=== PATIENT | female | born 1945 | race Caucasian/White ===

== ENCOUNTER 2017-04-15 23:11 | Emergency (ER) | payer MEDICARE, MEDICAID ==
[~2017-04-15] VITALS: Ht 154.9 cm; Wt 59.0 kg
[~2017-04-15 23:11] MED LIST: ALBU0.086 NEB; ALBU1AER INH; ASPI81TA82 PO; DOXY100T PO; LOSA50TA PO; MELO15TA2 PO; PROM25SU8 PO; SIMV10 PO; ZOFR4TAB3 SL; inhaler
[2017-04-15 23:46] VITALS: BP 103/51; PULSE 67; RESP 20; TEMP 98.5; O2SAT 100
--- NOTE | 2017-04-16 02:19 | PD ---
HPI Chief Complaint: Fall Time Seen by Provider: 02:10 Travel History International Travel<30 days: No Contact w/Intl Traveler<30days: No Traveled to known affect area: No History of Present Illness HPI 71-year-old female complains of left hip pain. Patient states that she fell 2 days ago. Patient states the pain is sharp pain localized to left hip. Patient denies any pain radiation. Patient states that the pain is worse with weightbearing. Patient complains of dysuria also. Patient denies any headache. Patient denies any neck pain. Patient denies any chest pain or shortness of breath. Patient denies abdominal pain. Patient denies any focal weakness or numbness of extremity. Patient has history of COPD, hypertension, MS, CVA, anxiety. PFSH Past Medical History Arthritis: Yes Blood Disorders: No Anxiety: Yes Cancer: No Cardiovascular Problems: Yes Chemotherapy: No COPD: Yes Cerebrovascular Accident: Yes Diminished Hearing: Yes Endocrine: No Genitourinary: Yes Herniated Disk: Yes Hypertension: Yes Immune Disorder: No Kidney Stones: Yes Musculoskeletal: Yes (SURGERY FOR BEING [employer] FO[employer]) Neurologic: Yes Respiratory: No Myocardial Infarction: Yes Radiation Therapy: No Tetanus Vaccination: Unknown Influenza Vaccination: No : 1 Para: 1 Tubal Ligation: Yes Past Surgical History Abdominal Surgery: No Cardiac Surgery: No Ear Surgery: No Endocrine Surgery: No Eye Surgery: No Genitourinary Surgery: No Gynecologic Surgery: Yes Oral Surgery: No Pacemaker: No Thoracic Surgery: No Other Surgery: Yes Social History Alcohol Use: No Tobacco Use: Yes (4 CIG/DAY) Substance Use: No Allergies-Medications (Allergen,Severity, Reaction): Coded Allergies: acetaminophen (Unverified Allergy, Severe, Hallucinations, 04/16/17) propoxyphene (Unverified Allergy, Severe, Hallucinations, 04/16/17) shellfish derived (Unverified Allergy, Severe, 04/16/17) sulfamethoxazole (Unverified Allergy, Severe, Hives, 04/16/17) trimethoprim (Unverified Allergy, Severe, Hives, 04/16/17) Reported Meds & Prescriptions Reported Meds & Active Scripts Active Doxycycline Hyclate 100 mg (Doxycycline Hyclate) 100 Mg Tab 100 Mg PO BID Phenergan (Promethazine HCl) 25 Mg Tab 25 Mg PO Q6H PRN FOR NAUSEA/VOMITING Zofran ODT (Ondansetron HCl) 4 Mg Tab 4 Mg SL QID PRN FOR NAUSEA/VOMITING Reported Proventil Ud 0.083% (2.5 Mg/3 Ml) (Albuterol Sulfate) 2.5 Mg/3 Ml Inha 2.5 Mg NEB Q8HR NEB [inhaler] Proair Hfa (Albuterol Sulfate) 8.5 Gm Aero 1 Puff INH ONCE * SHAKE WELL BEFORE USE * Mobic (Meloxicam) 15 Mg Tab 15 Mg PO DAILY Losartan Potassium 50 MG (Losartan Potassium) 50 Mg Tab 50 Mg PO DAILY Simvastatin 10 mg (Simvastatin) 10 Mg Tab 1 Tab PO HS Aspir-81 (Aspirin) 81 Mg Tab 81 Mg PO DAILY Review of Systems General / Constitutional: No: Fever Eyes: No: Visual changes HENT: No: Headaches Cardiovascular: No: Chest Pain or Discomfort Respiratory: No: Shortness of Breath Gastrointestinal: No: Abdominal Pain Genitourinary: No: Dysuria Musculoskeletal: Positive: Pain Skin: No Rash Neurologic: No: Weakness Psychiatric: No: Depression Endocrine: No: Polydipsia Hematologic/Lymphatic: No: Easy Bruising Physical Exam Narrative GENERAL: Well-nourished, well-developed patient. SKIN: Focused skin assessment warm/dry. HEAD: Normocephalic. EYES: No scleral icterus. No injection or drainage. NECK: Supple, trachea midline. No JVD or lymphadenopathy. CARDIOVASCULAR: Regular rate and rhythm without murmurs, gallops, or rubs. RESPIRATORY: Breath sounds equal bilaterally. No accessory muscle use. GASTROINTESTINAL: Abdomen soft, non-tender, nondistended. MUSCULOSKELETAL: No cyanosis, or edema. Patient had moderate tenderness and palpation lateral aspect of the left hip joint. Limited range of motion the left hip secondary to pain. Sensory motor portion distally intact. BACK: Nontender without obvious deformity. No CVA tenderness. Neurologic exam: Patient's awake and alert oriented to place and person. Patient moves all extremities well except the left leg. No obvious focal neurological deficit. Data Data Last Documented VS Vital Signs Date Time Temp Pulse Resp B/P (MAP) Pulse Ox O2 Delivery O2 Flow Rate FiO2 04/16/17 02:40 19 98 Nasal Cannula 2.00 04/15/17 23:46 98.5 67 103/51 (68) Orders Orders Electrocardiogram (04/16/17 02:14) Complete Blood Count With Diff (1/11/18 02:14) Comprehensive Metabolic Panel (04/16/17 02:14) Prothrombin Time / Inr (Pt) (04/16/17 02:14) Act Partial Throm Time (Ptt) (04/16/17 02:14) Urinalysis - C+S If Indicated (04/16/17 02:14) Chest, Single Ap (04/16/17 02:14) Iv Access Insert/Monitor (04/16/17 02:14) Ecg Monitoring (04/16/17 02:14) Oximetry (04/16/17 02:14) Hip, Uni(Ap&Lat) W Ap Pelvis (04/16/17 02:14) Urine Culture (04/16/17 02:30) Ed Discharge Order (04/16/17 04:05) Labs Laboratory Tests Test 04/16/17 02:25 04/16/17 02:30 White Blood Count 13.2 TH/MM3 Red Blood Count 3.61 MIL/MM3 Hemoglobin 11.0 GM/DL Hematocrit 32.5 % Mean Corpuscular Volume 90.0 FL Mean Corpuscular Hemoglobin 30.4 PG Mean Corpuscular Hemoglobin Concent 33.8 % Red Cell Distribution Width 14.3 % Platelet Count 400 TH/MM3 Mean Platelet Volume 6.2 FL Neutrophils (%) (Auto) 61.0 % Lymphocytes (%) (Auto) 24.0 % Monocytes (%) (Auto) 11.3 % Eosinophils (%) (Auto) 2.8 % Basophils (%) (Auto) 0.9 % Neutrophils # (Auto) 8.1 TH/MM3 Lymphocytes # (Auto) 3.2 TH/MM3 Monocytes # (Auto) 1.5 TH/MM3 Eosinophils # (Auto) 0.4 TH/MM3 Basophils # (Auto) 0.1 TH/MM3 CBC Comment DIFF FINAL Differential Comment Prothrombin Time 10.9 SEC Prothromb Time International Ratio 1.1 RATIO Activated Partial Thromboplast Time 27.1 SEC Blood Urea Nitrogen 14 MG/DL Creatinine 0.98 MG/DL Random Glucose 104 MG/DL Total Protein 7.3 GM/DL Albumin 2.5 GM/DL Calcium Level 8.3 MG/DL Alkaline Phosphatase 100 U/L Aspartate Amino Transf (AST/SGOT) 25 U/L Alanine Aminotransferase (ALT/SGPT) 23 U/L Total Bilirubin 0.2 MG/DL Sodium Level 140 MEQ/L Potassium Level 4.0 MEQ/L Chloride Level 106 MEQ/L Carbon Dioxide Level 25.8 MEQ/L Anion Gap 8 MEQ/L Estimat Glomerular Filtration Rate 56 ML/MIN Urine Color YELLOW Urine Turbidity HAZY Urine pH 6.0 Urine Specific [place] 1.008 Urine Protein TRACE mg/dL Urine Glucose (UA) NEG mg/dL Urine Ketones NEG mg/dL Urine Occult Blood SMALL Urine Nitrite NEG Urine Bilirubin NEG Urine Urobilinogen LESS THAN 2.0 MG/DL Urine Leukocyte Esterase LARGE Urine RBC /hpf Urine WBC 28 /hpf Urine Squamous Epithelial Cells 10 /hpf Urine Amorphous Sediment RARE Urine Bacteria MANY /hpf Microscopic Urinalysis Comment CULTURE INDICATED MDM Medical Decision Making Medical Screen Exam Complete: Yes Emergency Medical Condition: Yes Interpretation(s) Last Impressions Hip and Pelvis X-Ray 04/16/17213 Signed Impressions: Service Date/Time: April 02:49 - CONCLUSION: 1. There is no evidence of acute fracture. Lasha Mccoy MD Chest X-Ray 04/16/17213 Signed Impressions: Service Date/Time: April 02:49 - CONCLUSION: 1. No acute cardiopulmonary disease. Lasha Mccoy MD Differential Diagnosis Differential diagnosis including contusion, fracture, dislocation. Narrative Course 71-year-old female with left hip injury. Diagnosis Primary Impression: Contusion of left hip Qualified Codes: S70.02XA - Contusion of left hip, initial encounter Additional Impression: UTI (urinary tract infection) Qualified Codes: N30.00 - Acute cystitis without hematuria Patient Instructions: General Instructions Additional Instructions: Advil for pain. Follow-up with personal physician or orthopedist if persistent problem. Cipro as directed for UTI. Med/Other Pt SpecificInfo: Prescription(s) given, No Change to Meds Scripts Ciprofloxacin (Cipro) 500 Mg Tab 500 MG PO BID for Infection, #14 TAB 0 Refills Prov: Mak Hernandez MD 04/16/17 Disposition: 01 DISCHARGE HOME Condition: Stable Mak Hernandez MD Apr 16, 2017 02:19
[2017-04-16 02:33] LABS: AUTOMATED NEUTROPHIL # 8.1 TH/MM3 (1.8-7.7); BASOPHIL # 0.1 TH/MM3 (0-0.2); BASOPHIL % 0.9 % (0.0-2.0); EOSINOPHIL # 0.4 TH/MM3 (0-0.4); EOSINOPHIL % 2.8 % (0.0-4.0); HEMATOCRIT 32.5 % (35.0-46.0); LYMPHOCYTE # 3.2 TH/MM3 (1.0-4.8); MEAN CORPUSCULAR HEMOGLOBIN 30.4 PG (27.0-34.0); MEAN CORPUSCULAR HGB CONC 33.8 % (32.0-36.0); MEAN PLATELET VOLUME 6.2 FL (7.0-11.0); MONO % 11.3 % (0.0-8.0); MONOCYTE # 1.5 TH/MM3 (0-0.9); PLATELET COUNT 400 TH/MM3 (150-450); RED BLOOD COUNT 3.61 MIL/MM3 (4.00-5.30); RED CELL DISTRIBUTION WIDTH 14.3 % (11.6-17.2); WHITE BLOOD COUNT 13.2 TH/MM3 (4.0-11.0)
[2017-04-16 02:40] VITALS: RESP 19; O2SAT 98
[2017-04-16 02:42] LABS: INTERNATIONAL NORMALIZED RATIO 1.1 RATIO; PROTHROMBIN TIME - PATIENT 10.9 SEC (9.8-11.6)
[2017-04-16 02:56] LABS: AMORPHOUS SEDIMENT, URINE RARE; BACTERIA, URINE MANY /hpf; BILIRUBIN, URINE NEG (NEG); BLOOD, URINE SMALL (NEG); GLUCOSE,URINE NEG (NEG); KETONE, URINE NEG (NEG); NITRITE,URINE NEG (NEG); SQUAMOUS EPITHELIAL CELL URINE 10 /hpf (0-5); URINE COLOR YELLOW (YELLW/STRAW); URINE LEUKOCYTE ESTERASE LARGE (NEG)
[2017-04-16 02:56] LABS: ALBUMIN 2.5 GM/DL (3.4-5.0); ALT (GPT) 23 U/L (10-53); AST (GOT) 25 U/L (15-37); BICARBONATE 25.8 MEQ/L (21.0-32.0); BLOOD UREA NITROGEN 14 MG/DL (7-18); CALCIUM 8.3 MG/DL (8.5-10.1); CHLORIDE 106 MEQ/L (98-107); CREATININE 0.98 MG/DL (0.50-1.00); GLOMERULAR FILTRATION RATE 56 ML/MIN (>89); GLUCOSE,RANDOM 104 MG/DL (74-106); SODIUM (NA) 140 MEQ/L (136-145)
[2017-04-16 02:59] LABS: ALKALINE PHOSPHATASE 100 U/L (45-117); TOTAL BILIRUBIN ADULT 0.2 MG/DL (0.2-1.0); TOTAL PROTEIN 7.3 GM/DL (6.4-8.2)
--- NOTE | 2017-04-16 03:43 | RADRPT ---
EXAM DATE/TIME: 04/16/2017 02:49 [facility] COMPARISON: CHEST SINGLE AP, October 15, 2014, 22:16. INDICATIONS : Pain and weakness. MEDICAL HISTORY : None. SURGICAL HISTORY : None. ENCOUNTER: Initial ACUITY: 1 day PAIN SCORE: 3/10 LOCATION: Bilateral chest FINDINGS: A single view of the chest demonstrates the lungs to be symmetrically aerated without evidence of mas s, infiltrate or effusion. The cardiomediastinal contours are unremarkable. Osseous structures are intact. CONCLUSION: 1. No acute cardiopulmonary disease. Lasha Mccoy MD on April 16, 2017 at 3:42 Board Certified Radiologist. This report was verified electronically.
--- NOTE | 2017-04-16 03:46 | RADRPT ---
EXAM DATE/TIME: 04/16/2017 02:49 [facility] COMPARISON: No previous studies available for comparison. INDICATIONS : Left hip pain. MEDICAL HISTORY : None. SURGICAL HISTORY : None. ENCOUNTER: Initial ACUITY: 1 day PAIN SCORE: 10/10 LOCATION: Left hip. FINDINGS: Examination of the left hip was performed with AP Pelvis. The primary and secondary trabecular patte rn of the femoral neck is intact. The hip joint is of normal width without significant sclerosis or bony hypertrophy. The acetabulum is grossly intact. CONCLUSION: 1. There is no evidence of acute fracture. Lasha Mccoy MD on April 16, 2017 at 3:43 Board Certified Radiologist. This report was verified electronically.
[2017-04-16] MEDS ORDERED: CIPR-9 PO (04:19)
[2017-04-16 04:29] VITALS: BP 140/75; PULSE 68; RESP 19; O2SAT 99
--- NOTE | 2017-04-16 18:54 | EKG ---
Date Performed: 04/16/2017 Time Performed: 02:38:23 PTAGE: 71 years EKG: Sinus rhythm SEPTAL MYOCARDIAL INFARCTION ABNORMAL ECG PREVIOUS TRACING 10/15/14 SINCE PRIOR TRACING THERE HAS BEEN SLIGHT INCREASE IN INFEROLAT ERAL ST SEGMENT DEPRESSION. Clinical correlation is recommended DOCTOR: Lucina Roman Interpretating Date/Time 04/16/2017 18:53:32
== END 2017-04-16 08:17 | disposition home or self-care (01) ==
LOC: NEPE 23:11
DX: S70.02XA Contusion of left hip, initial encounter (principal); N39.0 Urinary tract infection, site not specified; B96.20 Unspecified Escherichia coli [E. coli] as the cause of diseases classified elsewhere; I10 Essential (primary) hypertension; I25.2 Old myocardial infarction; W19.XXXA Unspecified fall, initial encounter; Z72.0 Tobacco use
CPT/HCPCS: 71045; 73502; 80053; 81001; 85025; 85610; 85730; 87077; 87086; 87186; 93005; 99285

== ENCOUNTER 2017-07-01 13:58 | Emergency (ER) | payer MEDICARE, MEDICAID ==
[~2017-07-01] VITALS: Ht 162.6 cm; Wt 58.0 kg
[~2017-07-01 13:58] MED LIST changes: +CIPR-9 PO
[2017-07-01 14:31] VITALS: BP 147/68; PULSE 76; RESP 18; TEMP 98.9; O2SAT 98
--- NOTE | 2017-07-01 15:25 | RADRPT ---
EXAM DATE/TIME: 07/01/2017 15:10 [facility] COMPARISON: CHEST SINGLE AP, April 16, 2017, 2:49. CHEST SINGLE AP, October 15, 2014, 22:16. INDICATIONS : Cough MEDICAL HISTORY : Hypertension. Cerebrovascular disease. Hypothyroidism. heart attack SURGICAL HISTORY : None. ENCOUNTER: Initial ACUITY: 1 day PAIN SCORE: 0/10 LOCATION: Bilateral chest FINDINGS: PA and lateral views of the chest demonstrates mild streaky changes in the right lung base. Otherwise , the lungs are clear and well-aerated. The heart size is within normal limits. There no pleural effu sions or pulmonary edema. The bony structures are stable and intact.. CONCLUSION: Mild streaky changes in the right lung base. This may represent a mild inflammatory pneumonia. Otherw ise, no new or significant changes compared to the prior study. Regan Raymond MD on July 01, 2017 at 15:22 Board Certified Radiologist. This report was verified electronically.
== END 2017-07-01 17:00 | disposition left against medical advice (07) ==
LOC: NED 13:58
DX: R09.89 Other specified symptoms and signs involving the circulatory and respiratory systems (principal)
CPT/HCPCS: 71046; 99281